=== PATIENT | female | born 1945 | race Caucasian/White ===

== ENCOUNTER 2023-11-30 14:30 | Emergency (ER) | payer MEDICARE, OTHER, SELFPAY ==
--- NOTE | ~2023-11-30 | XR_ITS ---
XR foot RT min 3V DATE: 11/30/2023 15:10 INDICATION: Lateral foot and fifth digit pain TECHNIQUE: 4 views COMPARISON: None FINDINGS: There is osteopenia. There is a screw in the distal shaft of the first metatarsal bone and evidence of bunionectomy. Mild osteoarthritis at the first metatarsophalangeal joint There is flattening and deformity of the second metatarsal head with prominent second metatarsophalan geal joint osteoarthritic change. Fusion at the proximal interphalangeal joints of the second and third digits. Mild plantar and minimal posterior calcaneal enthesopathy. No recent fracture, dislocation, periosteal reaction or bone destruction. No erosive change is noted. IMPRESSION: Status post bunionectomy Flattening deformity of second metatarsal head with osteoarthritis at second and to a lesser extent f irst metatarsophalangeal joints Mild plantar and minimal posterior calcaneal enthesopathy Osteopenia Reviewed, dictated and finalized at location L. OPERATOR IMPRESSION: Status post bunionectomy Flattening deformity of second metatarsal head with osteoarthritis at second an d to a lesser extent first metatarsophalangeal joints Mild plantar and minimal posterior calcaneal enthesopathy Osteopenia
[2023-11-30 14:49] VITALS: BP 126/110; PULSE 83; RESP 16; TEMP 36.6; O2SAT 98
--- NOTE | 2023-11-30 14:57 | ED.GENADULT ---
HPI - General Adult General Chief complaint: Extremity Injury, Lower Stated complaint: rt foot pain Time Seen by Provider: 11/30/23 14:52 Source: patient, RN notes reviewed and old records reviewed Mode of arrival: ambulatory Limitations: no limitations History of Present Illness HPI narrative: 78-year-old female who presents to [facility] with complaints of right foot pain which has increased in the past 2 weeks with no known injury. Patient reports she has had previous surgeries to her right foot and she sees a project executive regularly. Patient states she has been told she has arthritis in her foot but pains been so bad lately that she thinks something else is going on too.Patient reports that pain is to the lateral base of 5th toe with no bruising or swelling or redness noted skin integrity intact. MD complaint: right foot pain Onset (ago): week(s) (increased symptom for 2 weeks) Severity scale (1-10): 10 Treatments prior to arrival: NSAID and other (Tylenol and Aleve, Biofreeze) Related Data Home Medications Medication Instructions Recorded Confirmed albuterol sulfate 90 mcg/actuation inhalation 11/30/23 aerosol inhaler amitriptyline 25 mg tablet mg 11/30/23 amlodipine 5 mg tablet mg 11/30/23 budesonide 160 mcg-glycopyr 9 inh inhalation 11/30/23 mcg-formot 4.8 mcg/actuation HFA inhaler (Breztri Aerosphere) furosemide 20 mg tablet mg 11/30/23 gabapentin 300 mg capsule mg 11/30/23 glimepiride 1 mg tablet mg 11/30/23 insulin glargine 100 unit/mL (3 unit subcut 11/30/23 mL) subcutaneous pen (Lantus Solostar U-100 Insulin) losartan 25 mg tablet mg 11/30/23 metoprolol succinate 25 mg mg PO 11/30/23 tablet,extended release 24 hr omeprazole 20 mg capsule,delayed mg 11/30/23 release pen needle, diabetic 31 gauge x 11/30/23 11/30/2316 (TRUEplus Pen Needle) pen needle, diabetic 32 gauge x 11/30/23 11/30/23 (TRUEplus Pen Needle) pregabalin 25 mg capsule mg 11/30/23 rosuvastatin 20 mg tablet mg 11/30/23 tizanidine 4 mg tablet mg 11/30/23 trazodone 50 mg tablet mg 11/30/23 Allergies Allergy/AdvReac Type Severity Reaction Status Date / Time codeine Allergy Unknown Verified 01/21/22 10:39 Review of Systems Review of Systems: CONSTITUTIONAL: Denies fever, chills, or sweats. EYES: Denies visual changes, redness, or discharge. ENT: Denies rhinorrhea, congestion, sore throat, or otalgia. CARDIOVASCULAR: Denies chest pain, palpitations, or edema. RESPIRATORY: Denies cough or dyspnea. GASTROINTESTINAL: Denies abdominal pain, nausea, vomiting, or diarrhea. GENITOURINARY: Denies dysuria or hematuria. SKIN: Denies rash or itching. MUSCULOSKELETAL: Denies back pain,positive for right foot pain, or myalgia. NEUROLOGIC: Denies headache, numbness, or weakness. PSYCHIATRIC: Denies anxiety or depression. All systems reviewed & are unremarkable except as noted in HPI and below PMFSH Past Medical History Medical History Arthritis Asthma Back pain CKD (chronic kidney disease) Cystitis Diabetes Diverticulitis Elevated cholesterol GERD (gastroesophageal reflux disease) Herpes zoster of eye Hypertension Kidney stone Myocardial infarction JACKELINE on CPAP Surgical History Surgical History (Updated 12/02/23 @ 08:21 by Miladis Pagan NP) History of bunionectomy of right great toe History of carpal tunnel release of both wrists History of colostomy reversal colostomy with reversal History of coronary artery stent placement History of hysterectomy History of total left knee replacement (TKR) History of total right knee replacement S/P cubital tunnel release Status post carpal tunnel release Family History Family History Sibling Carcinoma of colon Other Acute myocardial infarction Heart disease Social History Social History (Updated 11/30/23 @ 15:05 by Elaina
== END 2023-11-30 15:51 | disposition home or self-care (01) ==
PROVIDERS: Emergency Provider Registered Nurse
DX: M79.671 Pain in right foot (principal); Z87.891 Personal history of nicotine dependence; M19.90 Unspecified osteoarthritis, unspecified site; J45.909 Unspecified asthma, uncomplicated; I12.9 Hypertensive chronic kidney disease with stage 1 through stage 4 chronic kidney disease, or unspecified chronic kidney disease; E11.22 Type 2 diabetes mellitus with diabetic chronic kidney disease; N18.9 Chronic kidney disease, unspecified; E78.00 Pure hypercholesterolemia, unspecified; I25.2 Old myocardial infarction; G47.33 Obstructive sleep apnea (adult) (pediatric); Z95.5 Presence of coronary angioplasty implant and graft; Z96.653 Presence of artificial knee joint, bilateral
CPT/HCPCS: 73630; 99213; G0463

== ENCOUNTER 2025-06-04 13:26 | Outpatient (CLI) | payer MEDICARE, OTHER, SELFPAY ==
--- NOTE | ~2025-06-04 | XR_ITS ---
XR sacroiliac joints min 3V 06/04/2025 13:44 Indication: Sacroiliac joint pain Procedure: 3 view sacroiliac joints Comparison: No prior studies for comparison. Findings: Mild symmetric degenerative change of the sacroiliac joints. There is lower lumbar spondylosis. No erosive changes or ankylosis. Impression: 1: Mild symmetric degenerative changes of the sacroiliac joints. Reviewed, dictated and finalized at location A. Impression: 1: Mild symmetric degenerative changes of the sacroiliac joints.
== END 2025-06-04 13:27 | disposition home or self-care (01) ==
LOC: MICIMG 13:29
PROVIDERS: Visit Provider Physician Assistant
DX: M53.3 Sacrococcygeal disorders, not elsewhere classified (principal)
CPT/HCPCS: 72202